=== PATIENT | female | born 1995 | race Caucasian/White ===

== ENCOUNTER 2020-09-03 05:28 | Emergency (ER) | payer OTHER ==
[2020-09-03 05:38] VITALS: BMI 30.1
[2020-09-03] MEDS ORDERED: ONDANSETRON 4 MG/2 ML VIAL ONE (05:40)
[2020-09-03] MEDS ORDERED: ONDANSETRON 4 MG/2 ML VIAL IVPUSH ONE (05:41)
[2020-09-03] MEDS ORDERED: SODIUM CHLORIDE 1,000 ML IV STA (05:41)
[2020-09-03 05:59] VITALS: BP 134/82; PULSE 108; TEMP 97.6
[2020-09-03] MEDS ORDERED: FAMOTIDINE 20 MG/50 ML IVPB 20 MG/50 ML MG IVPB ONE ×2 (06:14)
[2020-09-03] MEDS ORDERED: ONDANSETRON *ODT* 4 MG TABLET SL ONE (06:50)
[2020-09-03] MEDS ORDERED: ONDANSETRON *ODT* 4 MG TABLET ONE (06:51)
== END 2020-09-03 07:16 | disposition home or self-care (01) ==
LOC: FER 05:28
PROC: 3E033GC Introduction of Other Therapeutic Substance into Peripheral Vein, Percutaneous Approach (ICD-10-PCS; principal; 2020-09-03)
PROC: 3E033GC Introduction of Other Therapeutic Substance into Peripheral Vein, Percutaneous Approach (ICD-10-PCS; 2020-09-03)
PROC: 3E033GC Introduction of Other Therapeutic Substance into Peripheral Vein, Percutaneous Approach (ICD-10-PCS; 2020-09-03)
PROC: 3E0337Z Introduction of Electrolytic and Water Balance Substance into Peripheral Vein, Percutaneous Approach (ICD-10-PCS; 2020-09-03)
DX: K29.20 Alcoholic gastritis without bleeding (principal)
CPT/HCPCS: 99284-25; Q0162